=== PATIENT | male | born 1980 | race Caucasian/White ===

== ENCOUNTER 2018-09-15 20:02 | Emergency (ER) | payer BC ==
[~2018-09-15] VITALS: Ht 182.9 cm; Wt 97.5 kg
[2018-09-15] MEDS ORDERED: OMEPRAZOLE20 MG PO (20:43)
[2018-09-15] MEDS ORDERED: PRAVASTATIN SOD10 MG PO (20:43)
[2018-09-15] MEDS ORDERED: FAMCICLOVIR500 MG PO (21:59)
== END 2018-09-15 22:15 | disposition home or self-care (01) ==
LOC: ED 20:02
DX: B02.9 Zoster without complications (principal); K21.9 Gastro-esophageal reflux disease without esophagitis; E78.00 Pure hypercholesterolemia, unspecified; Z87.891 Personal history of nicotine dependence; Z79.899 Other long term (current) drug therapy
CPT/HCPCS: 99283